=== PATIENT | female | born 1980 | race Caucasian/White ===

== ENCOUNTER 2021-12-25 09:59 | Day surgery (SDC) | payer BC ==
[2021-12-22 12:38] LABS: BASOPHILS % (AUTO) 0.2 % (0-1); EOSINOPHILS # (AUTO) 0.3 X10'3 (0-0.9); EOSINOPHILS % (AUTO) 3.2 % (0-6); LYMPHOCYTES # (AUTO) 2.4 X10'3 (1.1-4.8); LYMPHOCYTES % (AUTO) 25.4 % (21-51); MEAN CORPUSCULAR HEMOGLOBIN 25.8 PG (27.0-31.0); MEAN CORPUSCULAR HGB CONC 32.3 g/dL (33.0-36.5); MEAN CORPUSCULAR VOLUME 79.8 FL (78-98); MEAN PLATELET VOLUME 8.2 FL (7.4-10.4); MONOCYTES # (AUTO) 0.6 X10'3 (0-0.9); MONOCYTES % (AUTO) 6.5 % (2-12); NEUTROPHILS # (AUTO) 6.2 X10'3 (1.8-7.7); NEUTROPHILS % (AUTO) 64.7 % (42-75); PRE OP HEMATOCRIT 39.7 % (35.0-45.0); PRE OP HEMOGLOBIN 12.8 g/dL (12.0-16.0); PRE OP PLATELET COUNT 338 X10'3 (140-440); RED BLOOD COUNT 4.98 X10'6 (4.20-5.60); RED CELL DISTRIBUTION WIDTH 14.7 % (11.5-14.5)
[2021-12-22 12:53] LABS: ALBUMIN 3.5 G/DL (3.4-5.0); ALBUMIN/GLOBULIN RATIO 0.8 (1.1-1.5); ALKALINE PHOSPHATASE 88 IU/L (46-116); BLOOD UREA NITROGEN 15 MG/DL (7-18); BUN/CREATININE RATIO 21.4 (6.6-38.0); CALCIUM 9.1 MG/DL (8.5-10.1); CHLORIDE 105 MMOL/L (99-107); PRE OP ALT 27 U/L (30-65); PRE OP ANION GAP 10 (8-16); PRE OP AST 18 U/L (10-37); PRE OP BILIRUB, TOTAL 0.2 MG/DL (0.0-1.0); PRE OP GLUCOSE 86 MG/DL (70-104); PRE OP SODIUM 141 MMOL/L (135-145); TOTAL CARBON DIOXIDE 25.6 MMOL/L (24-32); TOTAL PROTEIN 7.7 G/DL (6.4-8.2); eGFR > 90 ML/MIN
[2021-12-22 12:56] LABS: HCG SERUM QL NEGATIVE
[~2021-12-25] VITALS: Ht 175.3 cm; Wt 114.9 kg
[2021-12-25] VITALS (11 sets, daily range): BP systolic 131–158; BP diastolic 87–100
[~2021-12-25 09:59] MED LIST: CETI10CA19 PO; FLUT16SP26 BOTHNARES; LACT1CAP75 PO; SERT-433 PO; ceFOXitin 2GM-NS 100mL ADDvant 100 ML IV ONE; famotidine 20mg tablet PO ONE; ringers solution, lacted 1,000 ML IV SCH
[2021-12-25] MEDS ORDERED: ceFAZolin 1000mg inj ONE ×2 (14:16→16:46)
[2021-12-25] MEDS ORDERED: BUPIVAcaine 0.5% inj/PF 0 ML ONE (14:17)
[2021-12-25] MEDS ORDERED: lidocaine 1%/epinephrine 1:100,000 inj. 50ml multi-dose vial ONE (14:17)
[2021-12-25] MEDS ORDERED: midazolam 1 mg/ML 2ml injection ONE (14:32)
[2021-12-25] MEDS ORDERED: rocuronium 10mg/ml inj IV ONE (14:33)
[2021-12-25] MEDS ORDERED: propofol inj 20 ML IV ONE (14:33)
[2021-12-25] MEDS ORDERED: fentaNYL /PF 50mcg/ml 5ml ampule ONE (14:33)
[2021-12-25] MEDS ORDERED: oxyCODONE/APAP 5-325mg tablet PO PRN ×2 (14:35)
[2021-12-25] MEDS ORDERED: proCHLORperazine 10 MG/2 ml inj IV PRN (15:20)
[2021-12-25] MEDS ORDERED: ringers solution, lacted 1,000 ML IV SCH (15:20)
[2021-12-25] MEDS ORDERED: ondansetron/PF 4mg/2ml inj IV PRN (15:20)
[2021-12-25] MEDS ORDERED: meperidine/PF 25mg/ml syringe IV PRN ×3 (15:20)
[2021-12-25] MEDS ORDERED: morphine 4 MG/ML inj SYRINge IV PRN (15:20)
[2021-12-25] MEDS ORDERED: morphine 2 MG/ML inj. syringe IV PRN (15:20)
[2021-12-25] MEDS ORDERED: ondansetron/PF 4mg/2ml inj ONE (15:30)
[2021-12-25] MEDS ORDERED: dexamethasone sod phosphate 4mg/ml inj. ONE (15:30)
[2021-12-25] MEDS ORDERED: acetaminophen 1,000mg/100ml IV 100 ML IV ONE (15:32)
[2021-12-25] MEDS ORDERED: neostigmine methylsulfate 1 MG/ML 10ml vial ONE (15:48)
[2021-12-25] MEDS ORDERED: glycopyrrolate 0.2mg/ml inj ONE (15:48)
--- NOTE | 2021-12-25 16:02 | NUR ---
Received from OR via [facility] , accompanied by Anesthesiologist BRYAN and report given by Anesthesiolgist. PATIENT WITH 20G PIV IN LEFT UE RUNNING LR AT 100. DENIES PAIN. 3 LAP SITES COVERED TO ABDOMEN. 10L MASK ON WITH 100% SATURATIONS. DINO PAD IN PLACE. Addendum: 12/25/21 at 1612 by Federico Salas RN RN Amended: Links added.
--- NOTE | 2021-12-25 17:42 | NUR ---
ALL DISCHARGE CRITERIA HAS BEEN MET. VSS, PAIN AT A TOLERABLE LEVEL, VOIDED AND ABLE TO SAFELY AMBULATE AND TRANSFER SELF. IV TAKEN OUT WITHOUT ANY COMPLICATIONS. ALL DISCHARGE INSTRUCTIONS COVERED WITH PATIENT AND ALL QUESTIONS ANSWERED. PATIENT TAKEN OUT VIA WHEELCHAIR TO PERSONAL VEHICLE WHERE FAMILY DROVE PATIENT HOME. Addendum: 12/25/21 at 1808 by Federico Salas RN, RN Amended: Links added.
== END 2021-12-25 17:42 | disposition home or self-care (01) ==
LOC: PAS 09:59
PROVIDERS: ATTEND Obstetrics & Gynecology
DX: Z30.2 Encounter for sterilization (principal); N39.3 Stress incontinence (female) (male); N92.0 Excessive and frequent menstruation with regular cycle; D64.9 Anemia, unspecified; F41.9 Anxiety disorder, unspecified; G47.30 Sleep apnea, unspecified; E66.9 Obesity, unspecified; Z68.37 Body mass index [BMI] 37.0-37.9, adult; Z20.822 Contact with and (suspected) exposure to COVID-19; Z79.899 Other long term (current) drug therapy; Z98.890 Other specified postprocedural states; Z80.3 Family history of malignant neoplasm of breast; Z83.3 Family history of diabetes mellitus; Z83.6 Family history of other diseases of the respiratory system
CPT/HCPCS: 36415; 57288; 58563; 58670; 80053; 82948; 84703; 85025; 86885; 86900; 86901; 87635; 93005; A6258; C1758; C1771; C9803; J0131; J0690; J0694; J1100; J2250; J2405; J2704; J2710; J3010; J3490; J7030; J7120; Z7506; Z7508; Z7512; A4355; A4618; A4649; A6250; A7000; S0020